=== PATIENT | female | born 1955 | race Caucasian/White ===

== ENCOUNTER 2020-03-02 18:47 | Inpatient (IN) | payer MEDICARE, OTHER ==
[~2020-03-02] VITALS: Ht 165.1 cm; Wt 49.9 kg
[~2020-03-02 18:47] MED LIST: CHOL10002 PO; CLON1TAB PO; FLUT10.62 INH; HYDR-4354 PO; LAMO100T2 PO; LEVO500T2 PO; LINA145C PO; MONT10TA22 PO; PRED20TA PO; TRAZ150T75 PO
[2020-03-02] MEDS ORDERED: Magnesium 1GM/D5W 100ML PREMIX 200 ML IV ONE (18:57)
[2020-03-02] MEDS ORDERED: ALBUTEROL FS 2.5 MG/3 ML VIAL.NEB NEB ONE (19:00)
[2020-03-02] MEDS ORDERED: methylPREDNISolone SOD SUCC 125 MG/2ML VIAL IV ONE (19:00)
[2020-03-02] MEDS ORDERED: IPRATROPIUM NEB FS 0.5 MG/2.5 ML AMPUL.NEB NEB ONE (19:00)
[2020-03-02] MEDS ORDERED: hydrALAZINE HCL IV 20 MG VIAL IV ONE (19:00)
--- NOTE | 2020-03-02 19:01 | NUR ---
JAYE FROM HOME TO ER EBD 5. AAOX4. IN RESP DISTRESS - SOB, DYSPNEIC, RETRACTING, TACHYPNEIC. BROUGHT IN FOR SOB AND DESATURATION. PT STATES THAT SHE HAS BEEN SOB THAT IS PROGRESSIVELY GETTING WORST. PT IS UNABLE TO USE HER ALBUTEROL INHALER BECAUSE SHE CANT INHALE HER MEDS WELL. PT WAS NOTED WHEEZING BILATERALLY UPON AUSCULTATION. O2 SAT NOTED @ 94% AFTER PLACING PT ON 2 LPM VIA NC. WAS AT THE BEDSIDE FOR EVAL. ORDERS RECEIVED NOTED AND CARREID OUT. IV LINE ESTABLISHED ON L AC 18G. BLOOD DRAWN AND GIVEN TO APPRENTICE LINEMAN THIRD STEP AT BEDSIDE.
[2020-03-02] MEDS ORDERED: ALBUTEROL FS 2.5 MG/3 ML VIAL.NEB ONE (19:03)
[2020-03-02] MEDS ORDERED: IPRATROPIUM NEB FS 0.5 MG/2.5 ML AMPUL.NEB ONE (19:03)
[2020-03-02] MEDS ORDERED: methylPREDNISolone SOD SUCC 125 MG/2ML VIAL ONE (19:24)
[2020-03-02] MEDS ORDERED: hydrALAZINE HCL IV 20 MG VIAL ONE (19:24)
[2020-03-02] MEDS ORDERED: Magnesium 1GM/D5W 100ML PREMIX 100 ML IV ONE ×2 (19:24→19:27)
[2020-03-02 19:25] LABS: BASOPHILS # (AUTO) 0.1 /CMM (0.0-0.2); BASOPHILS % (AUTO) 0.9 % (0.0-2.0); EOSINOPHILS % (AUTO) 12.4 % (0.0-6.0); HEMATOCRIT 45 % (33-45); HEMOGLOBIN 14.5 g/dL (11.5-14.8); LYMPHOCYTES # (AUTO) 2.9 /CMM (0.8-4.8); LYMPHOCYTES % (AUTO) 31.5 % (20.0-44.0); MEAN CORPUSCULAR HGB CONC 32 g/dl (31.0-36.0); MEAN CORPUSCULAR VOLUME 83 fL (82-100); MONOCYTES % (AUTO) 11.1 % (2.0-12.0); NEUTROPHILS % (AUTO) 44.1 % (43.0-81.0); PLATELET COUNT (AUTO) 255 /CMM (150-450); RED BLOOD CELL COUNT(AUTO) 5.37 MIL/uL (4.0-5.2); WHITE BLOOD COUNT (AUTO) 9.1 K/uL (4.3-11.0)
[2020-03-02 19:44] LABS: CALCIUM, SERUM 9.7 mg/dL (8.5-10.1); CARBON DIOXIDE 34 mmol/L (21-32); CHLORIDE 106 mmol/L (98-107); CREATININE 0.7 mg/dL (0.6-1.3); GLUCOSE 89 mg/dL (74-106); SODIUM SERUM 145 mmol/L (136-145); UREA NITROGEN, BLOOD 22 mg/dL (7-18)
--- NOTE | 2020-03-02 19:46 | NUR ---
APRESOLINE 10MG IV X 1 ON HOLD PER MD ORDERED D/T PT'S BP 144/95.
--- NOTE | 2020-03-02 19:47 | NUR ---
COVID SWAB DONE AND SENT TO LAB
[2020-03-02 19:49] LABS: ALANINE AMINOTRANSFERASE 28 U/L (12-78); ALBUMIN 3.7 g/dL (3.4-5.0); ALKALINE PHOSPHATASE 103 U/L (46-116); ASPARTATE AMINOTRANSFERASE 23 U/L (15-37); B-TYPE NATRIURETIC PEPTIDE 184 PG/ML (0-125); BILIRUBIN,DIRECT 0.1 mg/dL (0.0-0.2); BILIRUBIN,TOTAL 0.3 mg/dL (0.2-1.0)
[2020-03-02 19:51] LABS: ABG BASE EXCESS 0.6 mmol/L; ABG OXYGEN SATURATION 90.5 % (92.0-98.5); ABG PCO2 50.2 mmHg (35.0-45.0); ABG PH 7.349 (7.350-7.450); ABG PO2 64.8 mmHg (75.0-100.0); AaDO2 75.6 mmHg; COHb 1.5 % (0.5-1.5); MetHb 0.3 % (0.0-1.5); O2Hb 88.9 % (94.0-97.0); SITE, ABG Right Radial; VENT MODE, BG Nasal Cannula
--- NOTE | 2020-03-02 20:33 | NUR ---
PT NOTED WITH BP 130/85. MD MADE AWARE. APRESOLINE ON HOLD IS NOW CANCELLED BY THE MD. NOTED AND CARRIED OUT.
[2020-03-02 21:00] VITALS: BP 130/80
--- NOTE | 2020-03-02 21:00 | NUR ---
TELE/RN NEW ADMISSION NOTES RECEIVED PATIENT IS A 64 Y,O FEMALE WHO CAME FROM HOME AND ADMITTED FROM ER DUE TO COPD EXACERBATION REPORTED NOT ABLE TO OBTAIN NEBULIZER SHE RUN OF IT. PATIENT ALERT, ORIENTED X3, ABLE TO COOPERATE AND FOLLOW SIMPLE COMMANDS, ON OXYGEN VIA NC AT 2 LITERM RESPIRATIONS EVEN AND UNLABORED, SKIN WARM TO TOUCH, PATIENT MEDICATION HOME WAS REPORTED MD PATTERSON ADMITTING DR, PATIENT SKIN INTACTN ON REGULAR DIETM PATIENT PROVIDED SNACKS AND REPORTED INCIDENT OF FALL THAT CAUSE A FINGER TTO HAVE A SMALL SCAB, ROOM ORIENTATION PROVIDED, BELONGINGS CHECK , CALL LIGHTS WITHIN REACH, BED LOCKED.WILL MONITOR,
--- NOTE | 2020-03-02 21:26 | NUR ---
REC'D NEG COVID RESULTS BY DHARMESH FROM LAB. AWARE
--- NOTE | 2020-03-02 21:26 | NUR ---
Austin tiwari in [facility] - 03/02/20 at 2138 by TEDDY ELVIS MARTIN
--- NOTE | 2020-03-02 21:49 | NUR ---
LAB CALLED REGARDING COVID NEGATIVE RESULT.
--- NOTE | 2020-03-02 21:55 | NUR ---
REPORT GIVEN TO SOFIE ORELLANA FOR DANIEL
[2020-03-02] MEDS ORDERED: ZOLPIDEM TARTRATE 5 MG TABLET PO PRN (22:00)
[2020-03-02] MEDS ORDERED: ONDANSETRON HCL/PF 4 MG/2 ML VIAL IVP PRN (22:00)
[2020-03-02] MEDS ORDERED: MORPHINE SULFATE INJ 2 MG/ML DISP.SYRIN IV PRN (22:00)
[2020-03-02] MEDS ORDERED: MAG HYDROX/AL HYDROX/SIMETH 30 ML UDC PO PRN (22:00)
[2020-03-02] MEDS ORDERED: CLONIDINE HCL 0.1 MG TABLET PO PRN (22:00)
[2020-03-02] MEDS ORDERED: MAGNESIUM HYDROXIDE 30 ML UDC PO PRN (22:00)
[2020-03-02] MEDS ORDERED: ACETAMINOPHEN 325 MG TABLET PO PRN (22:00)
[2020-03-02] MEDS ORDERED: HYDROCODONE/APAP 5/325MG 1 EACH TABLET PO PRN (22:00)
[2020-03-02] MEDS: TRAZODONE 50 MG TABLET PO SCH (22:00)
[2020-03-02 22:08] VITALS: BP 130/80
--- NOTE | 2020-03-02 22:12 | NUR ---
PT TRANSPORTED TO UNIT ON GURNE WITH EMT AND RN AT BEDSIDE W/ SCLA PROTOCOL. NAD NOTED DURING TRANSPORT. PT AMBULATED FROM GURNEY TO BED ON STEADY GAIT
[2020-03-02] MEDS: AZITHROMYCIN 250 MG TABLET PO SCH (23:15)
[2020-03-02] MEDS: MONTELUKAST SODIUM (10MG) 10 MG TABLET PO SCH (23:15)
[2020-03-02] MEDS: ENOXAPARIN SODIUM 40 MG/0.4 ML DISP.SYRIN SQ SCH (23:18)
[2020-03-03] VITALS: BP 130/80
--- NOTE | 2020-03-03 02:00 | NUR ---
MS RN NOTES PATIENT IN BED, ASLEEP, ALERT AND ORIENTED X 3. BREATHING EVEN AND UNLABORED ON 2L NC. SHOWS NO SIGNS OF ACUTE RESPIRATORY DISTRESS, NO ACUTE PAIN. TELE MONITOR SR AT 90'S. IV ON LAC 18G ITS CLEAN DRY AND INTACT. SHOWS NO SIGNS OF INFILTRATION, NO REDNESS. SAFETY PRECAUTIONS IN PLACE. BED IN LOWEST POSITION, LOCKED, AND CALL LIGHT KEPT WITHIN REACH. WILL CONTINUE TO MONITOR.
[2020-03-03 04:00] VITALS: BP 153/96
[2020-03-03] MEDS: methylPREDNISolone SOD SUCC 40 MG/ML VIAL IV SCH ×3 (04:24→21:25)
[2020-03-03 06:20] LABS: BASOPHILS % (AUTO) 0.6 % (0.0-2.0); EOSINOPHILS % (AUTO) 0.1 % (0.0-6.0); HEMATOCRIT 42 % (33-45); HEMOGLOBIN 13.7 g/dL (11.5-14.8); LYMPHOCYTES # (AUTO) 0.7 /CMM (0.8-4.8); LYMPHOCYTES % (AUTO) 20.1 % (20.0-44.0); MEAN CORPUSCULAR HGB CONC 33 g/dl (31.0-36.0); MEAN CORPUSCULAR VOLUME 82 fL (82-100); MONOCYTES # (AUTO) 0.1 /CMM (0.1-1.30); MONOCYTES % (AUTO) 1.8 % (2.0-12.0); NEUTROPHILS # (AUTO) 2.8 /CMM (1.8-8.9); NEUTROPHILS % (AUTO) 77.4 % (43.0-81.0); PLATELET COUNT (AUTO) 238 /CMM (150-450); RED BLOOD CELL COUNT(AUTO) 5.13 MIL/uL (4.0-5.2); WHITE BLOOD COUNT (AUTO) 3.6 K/uL (4.3-11.0)
--- NOTE | 2020-03-03 06:37 | NUR ---
MS RN NOTES PATIENT IN BED, ASLEEP, ALERT AND ORIENTED X 3. BREATHING EVEN AND UNLABORED ON 2L NC. SHOWS NO SIGNS OF ACUTE RESPIRATORY DISTRESS, NO ACUTE PAIN. TELE MONITOR SR AT 90'S. IV ON LAC 18G ITS CLEAN DRY AND INTACT. SHOWS NO SIGNS OF INFILTRATION, NO REDNESS. ALL DUE MEDICATIONS GIVEN. SAFETY PRECAUTIONS IN PLACE. BED IN LOWEST POSITION, LOCKED, AND CALL LIGHT KEPT WITHIN REACH. WILL ENDORSE TO ONCOMING NURSE.
[2020-03-03 07:05] LABS: ALBUMIN 3.2 g/dL (3.4-5.0); BILIRUBIN,TOTAL 0.3 mg/dL (0.2-1.0); CALCIUM, SERUM 9.1 mg/dL (8.5-10.1); CREATININE 0.8 mg/dL (0.6-1.3); MAGNESIUM 2.4 mg/dL (1.8-2.4); PHOSPHORUS 2.9 mg/dL (2.5-4.9); POTASSIUM 3.9 mmol/L (3.5-5.1); TOTAL PROTEIN, SERUM 7.1 g/dL (6.4-8.2)
[2020-03-03] MEDS ORDERED: LINACLOTIDE 75 MCG PO SCH (07:30)
[2020-03-03 07:38] LABS: THYROID STIMULATING HORMONE 0.155 uIU/mL (0.358-3.74)
[2020-03-03] MEDS: IPRATROPIUM NEB FS 0.5 MG/2.5 ML AMPUL.NEB NEB SCH ×4 (07:55→19:21)
[2020-03-03] MEDS: ALBUTEROL FS 2.5 MG/3 ML VIAL.NEB NEB SCH ×4 (07:56→19:21)
[2020-03-03 08:00] VITALS: BP 120/81
--- NOTE | 2020-03-03 08:00 | NUR ---
WHITEWASHER AM NOTES PATIENT IN BED, ALERT AND ORIENTED X 3. BREATHING EVEN AND UNLABORED ON 2L NC ON/OFF-MOSTLY ON ROOM AIR. SHOWS NO SIGNS OF ACUTE RESPIRATORY DISTRESS, WITH FREQUENT DRY COUGH .PT C/O THAT SHE NEED A WOUND DRESSING CHANGE OF HER OLD RIGHT MID FINGER WOUND CUT THAT SHE OBTAINED 3 DAYS AGO WHEN SHE LOST HER BALANCE WHILE AT HOME AND CUT HER FINGER BY ACCIDENT. TOOK A PHOTO AND WILL NOTIFY DR CUADRA FOR BOTH WOUND CUT AND FREQUENT DRY COUGH. NO ACUTE PAIN. TELE MONITOR SR AT 90'S. IV ON LAC 18G ITS CLEAN DRY AND INTACT. SHOWS NO SIGNS OF INFILTRATION, NO REDNESS. AM MEDICATIONS GIVEN. SAFETY PRECAUTIONS IN PLACE. BED IN LOWEST POSITION, LOCKED, AND CALL LIGHT KEPT WITHIN REACH.
[2020-03-03] MEDS: GUAIFENESIN/CODEINE 10 ML UDC PO PRN ×2 (09:43→17:13)
[2020-03-03] MEDS: clonazePAM 1 MG TABLET PO SCH ×2 (09:43→17:13)
[2020-03-03] MEDS: LamoTRIgine 100 MG TABLET PO SCH (09:43)
[2020-03-03] MEDS: NICOTINE PATCH (14MG) 14 MG PATCH.TD24 TD SCH (09:43)
[2020-03-03 16:00] VITALS: BP 114/83
--- NOTE | 2020-03-03 16:43 | NUR ---
Met with patient at bedside, she is alert and pleasant, states she lives alone locally. She is ambulatory and independent with adl's. She is retired but still physically active and drives. Her family will provide ride when discharge. Addendum: 03/03/20 at 1644 by OXANA CEE RN Amended: Links added.
--- NOTE | 2020-03-03 18:00 | NUR ---
PT RESTING IN BED COMPLAINING THAT SHE HASN'T MOVED HER BOWELS FOR THE PAST 2 DAYS.DULCOLAX PO GIVEN ORDERED. ENCOURAGED FLUID INTAKE.WILL MONITOR.
[2020-03-03] MEDS: BISACODYL (5 MG) 5 MG TABLET.DR PO PRN (19:24)
--- NOTE | 2020-03-03 19:30 | NUR ---
MS RN RECEIVE PT A/O X 3, NO S/S OF DISTRESS. STABLE CONDITION. SAFETY MEASURES AT ALL TIMES. WILL CONT TO MONITOR.
[2020-03-03 20:00] VITALS: BP 112/65
--- NOTE | 2020-03-03 21:10 | NUR ---
MS RN PT C/O 9-10 PAIN SCIATICA LOWER BACK PAIN, PATIENT WANTED HER NORCO, PAGED HOSPITALIST AND RELAYED PT'S CONCERN RECEIVED TEL ORDER FROM LEONARDO NORCO 10/325 MG PO X 1 ONLY ONCE READ BACK AND VERIFIED ORDERS NOTED AND CARRIED OUT
[2020-03-03] MEDS: ENOXAPARIN SODIUM 40 MG/0.4 ML DISP.SYRIN SQ SCH (21:23)
[2020-03-03] MEDS: MONTELUKAST SODIUM (10MG) 10 MG TABLET PO SCH (21:27)
[2020-03-03] MEDS: TRAZODONE 50 MG TABLET PO SCH (21:27)
[2020-03-03] MEDS: AZITHROMYCIN 250 MG TABLET PO SCH (21:30)
[2020-03-03] MEDS ORDERED: HYDROCODONE/APAP 10/325MG 1 EA TABLET PO ONE (21:30)
--- NOTE | 2020-03-03 22:30 | NUR ---
MS RN PT SLEEPING AND COMFORTABLE AT THIS TIME. GAVINO EFFECTIVE. PT APPRECIATIVE TO NURSE
--- NOTE | 2020-03-04 | NUR ---
MS RN PT HAD EGG SANDWICH. NO S/S OF DISTRESS
[2020-03-04] MEDS: methylPREDNISolone SOD SUCC 40 MG/ML VIAL IV SCH ×2 (05:54→12:15)
--- NOTE | 2020-03-04 06:08 | NUR ---
MS RN SLEPT WELL, MONITORED ACCORDINGLY, TOLERATING ROOM AIR. ALL NEEDS ATTENDED AND ANTICIPATED, KEPT CLEAN, DRY AND COMFORTABLE AT ALL TIMES. NURSING CARE RENDERED, SAFETY MEASURES IN PLACE. WILL ENDORSE TO NEXT SHIFT.
[2020-03-04] MEDS: IPRATROPIUM NEB FS 0.5 MG/2.5 ML AMPUL.NEB NEB SCH ×3 (07:17→15:46)
[2020-03-04] MEDS: ALBUTEROL FS 2.5 MG/3 ML VIAL.NEB NEB SCH ×3 (07:17→15:46)
[2020-03-04 08:00] VITALS: BP 123/78
--- NOTE | 2020-03-04 08:00 | NUR ---
MS RN OPENING NOTES Received Patient resting in bed. A/O x 4. VS stable with no acute distress. Breathing even and unlabored on room air with no respiratory distress. Patient stated chronic back and left leg pain. Will intervene as ordered. 24g PIV on LAC clean, intact, patent and flushing well. Safety precautions in place. Bed locked and set to lowest position with side rails x 2 up. All needs rendered at this time. Call light within reach. Will continue to monitor.
[2020-03-04] MEDS: NICOTINE PATCH (14MG) 14 MG PATCH.TD24 TD SCH (08:34)
[2020-03-04] MEDS: clonazePAM 1 MG TABLET PO SCH ×2 (08:34→17:35)
[2020-03-04] MEDS: LamoTRIgine 100 MG TABLET PO SCH (08:34)
[2020-03-04] MEDS: HYDROCODONE/APAP 5/325MG 1 EACH TABLET PO PRN ×2 (09:50→17:35)
[2020-03-04] MEDS ORDERED: PRED20TA PO (10:36)
[2020-03-04 13:41] LABS: ABG BASE EXCESS 2.8 mmol/L; ABG PCO2 47.1 mmHg (35.0-45.0); ABG PH 7.397 (7.350-7.450); ABG PO2 61.4 mmHg (75.0-100.0); AaDO2 31.9 mmHg; COHb 0.3 % (0.5-1.5); MetHb 0.2 % (0.0-1.5); O2Hb 90.5 % (94.0-97.0); SITE, ABG Right Radial; VENT MODE, BG RA
[2020-03-04] MEDS: BISACODYL (5 MG) 5 MG TABLET.DR PO PRN (13:51)
[2020-03-04] MEDS: GUAIFENESIN/CODEINE 10 ML UDC PO PRN (17:35)
--- NOTE | 2020-03-04 17:54 | NUR ---
MS CORN COOKER NOTES Patient discharged for home at this time. Patient in stable condition. VS stable with no acute distress. Breathing even and unlabored on room air with no respiratory distress. Patient stated tolerable chronic back pain. Patient refused skin assessment pictures. Right finger scab clean, dry and intact. Medication reconciliation and discharge orders reviewed and explained to Patient. Patient verbalized understanding. All belongings with Patient. Patient will follow up with PCP and [facility] MD in 1 to 2 weeks. Escorted Patient to the Lobby for safety. Patient picked up by Joey (friend).
== END 2020-03-04 17:45 | disposition home or self-care (01) | DRG 189 ==
LOC: ER 18:50 → TELE 21:43 → MED 03-03 10:56
PROVIDERS: ADMIT Nurse Practitioner Acute Care; ATTEND Internal Medicine
DX: J96.21 Acute and chronic respiratory failure with hypoxia (principal); N17.0 Acute kidney failure with tubular necrosis; J44.1 Chronic obstructive pulmonary disease with (acute) exacerbation; D68.59 Other primary thrombophilia; J96.22 Acute and chronic respiratory failure with hypercapnia; K58.9 Irritable bowel syndrome, unspecified; I10 Essential (primary) hypertension; K21.9 Gastro-esophageal reflux disease without esophagitis; E11.9 Type 2 diabetes mellitus without complications; G89.29 Other chronic pain; Z98.890 Other specified postprocedural states; Z74.09 Other reduced mobility; Z79.51 Long term (current) use of inhaled steroids; F31.9 Bipolar disorder, unspecified; Z72.0 Tobacco use
CPT/HCPCS: 36415; 36600; 70220-TC; 71045-TC; 80048-TC; 80053-TC; 80061-TC; 80076-TC; 82803-TC; 83735-TC; 83880; 84100-TC; 84443-TC; 84484-TC; 85025-TC; 85378-TC; 87081-TC; 94799-TC; G0378; J0360; J1650; J2920; J2930; J3475